=== PATIENT | female | born 1950 | race Two or more races ===

== ENCOUNTER → 2018-08-02 | Day surgery (SDC) | payer OTHER ==
[~2018-08-02] VITALS: Ht 162.6 cm; Wt 82.6 kg
[2018-08-02] VITALS (8 sets, daily range): BP systolic 100–143; BP diastolic 53–68
[~2018-08-02] MED LIST: ASPIRIN EC81 MG ORAL; Atropine Inj 1mg/10ml Syr IV PRN; DiphenhydrAMINE 50mg/ml Inj IVP PRN; LR 1000ml 1,000 ML IVLG SCH; LR 1000ml ONE; Lidocaine 1% MPF 10mg/ml 5ml ONE; Midazolam 2mg/2ml Inj IVP PRN; Propofol 200mg/20ml IV ONE; [UNRECOGNIZED DRUG - CODE] PO; fentaNYL 100 mcg/2 mL IV PRN
--- NOTE | 2018-08-02 06:47 | Anethesia Preoperative Eval ---
Anesthesia Pre-op PMH/ROS General Date of Evaluation: Aug 02, 2018 Time of Evaluation: 06:46 Anesthesiologist: chuy ASA Score: ASA 3 Mallampati Score Class I : Soft palate, uvula, fauces, pillars visible Class II: Soft palate, uvula, fauces visible Class III: Soft palate, base of uvula visible Class IV: Only hard plate visible Mallampati Classification: Class II Surgeon: toño Diagnosis: abdominal pain, gerd Surgical Procedure: egd Anesthesia History: none Family History: no anesthesia problems Allergies: Coded Allergies: No Known Allergies (Unverified , 08/01/18) Medications: see eMAR Patient NPO?: Yes Past Medical History Cardiovascular: Reports: HTN Gastrointestinal/Genitourinary: Reports: other - hepatitis Neurologic/Psychiatric: Reports: depression/anxiety HEENT: Reports: cataract (L), cataract (R) Hematology/Immune: Reports: other - mumps Musculoskeletal/Integumentary: Reports: OA PSxH Narrative: Anesthesia Pre-op Phys. Exam Physician Exam Constitutional: NAD Neurologic: CN 2-12 intact Cardiovascular: RRR Respiratory: CTA Gastrointestinal: S/NT/ND Airway Exam Mallampati Score: Class II MO: limited Neck: flexible TMD: 2fb ROM: limited Anesthesia Pre-op A/P Risk Assessment & Plan Assessment: asa3 Plan: mac Status Change Before Surgery: No Pre-Antibiotics Drug: Jennifer Coon MD Aug 02, 2018 06:47
--- NOTE | 2018-08-02 10:24 | Short Stay Surgery H&P ---
History of Present Illness History of Present Illness Chief Complaint Abdominal pains/Epigastric pains/heartburn and dysphagia SHERON Haque is a 68 year old female who was admitted on for Abdominal Pain, Gerd/dysphagia Patient History Allergies: Coded Allergies: No Known Allergies (Unverified , 08/01/18) PAST MEDICAL HISTORY: (1) Hypertension (2) Diabetes (3) Arthritis (4) Previous section Review of Systems Cardiovascular: Reports: no symptoms, hypertension Respiratory: Reports: no symptoms Skeletal: Reports: osteroarthritis, trauma Gastrointestinal: Reports: gastro esophageal reflux disease Genitourinary: Reports: no symptoms Neurologic: Reports: no symptoms Endocrine: Reports: diabetes - type 2 Hematologic: Reports: no symptoms Physical Exam Skin: normal HENT: normal Heart: normal Lungs: normal Abdomen: abnormal Extremities: normal Genitourinary: normal Plan Plan of Care Upper GI. Endoscopy and biopsy Preop Interventions None. Summary of Findings See the reports Attestation Are the patient's medical conditions optimized for surgery? Attestation Response: yes Levy Watson MD Aug 02, 2018 10:24
--- NOTE | 2018-08-02 10:25 | Pre-Procedure Note/Attestation ---
Pre-Procedure Note/Attestation Complete Prior to Procedure Planned Procedure: left Procedure Narrative: Examination of the upper GI tract via endoscopy Indications for Procedure Pre-Operative Diagnosis: R/O Peptic ulcer/esophagitis. Attestation I attest that I discussed the nature of the procedure; its benefits; risks and complications; and alternatives (and the risks and benefits of such alternatives ), prior to the procedure, with the patient (or the patient's legal chemical sales representative). I attest that, if there was a reasonable possibility of needing a blood transfusion, the patient (or the patient's legal chemical sales representative) was given the [facility] standardized written summary, pursuant to the Aditya Damar Blood Safety Act ([place] Health and Safety Code # 1645, as amended). I attest that I re-evaluated the patient just prior to the surgery and that there has been no change in the patient's H&P, except as documented below: Levy Watson MD Aug 02, 2018 10:25
--- NOTE | 2018-08-02 11:07 | Endoscopy Procedure Note ---
Endoscopy Procedure Note General Indication for Procedure: Abdominal pains/dysphagia Procedures Performed: EGD - Gastritis of the antrum with erosions c/w erosive gastritis biopsied. Specimen: yes Pt Tolerated Procedure Well: Yes Estimated Blood Loss: none Anesthesia Anesthesiologist: Dr. Wood Anesthesia: moderate sedation Medications Medication Given: see anesthesia record Inserted Devices Implant(s) used?: No Quality Quality of Bowel Preparation: Excellent GI Core Measures 50 yrs or older w/o bx or poly: Not Applicable 10yrs. F/U not recommended: Not Applicable If not recommended, why?: Med reason:<3 yrs.: System Reason:<3 yrs.: Levy Watson MD Aug 02, 2018 11:07
--- NOTE | 2018-08-02 11:08 | Discharge Instructions ---
Discharge Instructions Discharge Instructions Follow up with: Visit the doctor after two weeks in the office For Congestive Heart Failure Reminder Report to your physician any weight gain of 5 pounds or more in one week. Levy Watson MD Aug 02, 2018 11:08
--- NOTE | 2018-08-02 12:37 | Immediate Post-Op Evaluation ---
Immediate Post-Op Evalulation Immediate Post-Op Evalulation Procedure: egd w/bx Date of Evaluation: Aug 02, 2018 Time of Evaluation: 11:23 Blood Products: none Estimated Blood Loss: negligible Blood Pressure Systolic: 143 Blood Pressure Diastolic: 68 Pulse Rate: 71 Respiratory Rate: 18 O2 Sat by Pulse Oximetry: 99 Temperature (Fahrenheit): 98.3 Pain Score (1-10): 0 Nausea: No Vomiting: No Complications none Patient Status: awake, reacts, patent Hydration Status: adequate Drug: Jennifer Coon MD Aug 02, 2018 12:37
--- NOTE | 2018-08-02 12:39 | 48 Hour Post Anesthesia Eval ---
Post Anesthesia Evaluation Procedure: egd w/bx Date of Evaluation: Aug 02, 2018 Time of Evaluation: 11:25 Blood Pressure Systolic: 123 0: 59 Pulse Rate: 60 Respiratory Rate: 18 Temperature (Fahrenheit): 98.5 O2 Sat by Pulse Oximetry: 99 Airway: patent Nausea: No Vomiting: No Pain Intensity: 0 Hydration Status: adequate Cardiopulmonary Status: stable Mental Status/LOC: patient returned to baseline Post-Anesthesia Complications: none Follow-up care needed: N/A Jennifer Hernandez MD Aug 02, 2018 12:39
--- NOTE | 2018-08-02 20:15 | Pre-op HX & Phy Repo 2 SIG ---
DATE OF ADMISSION: 08/02/2018 HISTORY OF PRESENT ILLNESS: The patient is a 68-year-old non-Filipino speaking female, who is being seen prior to undergoing the procedure of upper GI endoscopy for which she has been scheduled to receive for evaluation of her gastrointestinal symptoms that she has suffered subsequent to her work injury. The applicant basically complains of having pain and discomfort over the upper part of the abdomen associated with gastroesophageal reflux. She reports that she was working at [employer] and during this process she had suffered multiple injuries, which caused her to receive multiple medications including anti-inflammatory agents such as NSAIDs, ibuprofen, etc. She also has been experiencing nausea and occasional vomiting. She also reports to me that she feels some pressure over her chest area as well, but basically it is pain over the epigastric area. She reports however due to continuation of the pain over her body, which was secondary to work accident, she still has to continue taking Motrin. She reports that approximately 2 years ago, she also had a colonoscopic examination, which was reported to be normal findings, but she never had any upper GI endoscopy for evaluation of her upper GI symptoms as described above. As I mentioned, she was injured in different parts of the body at this job that she had working at the [employer] and she had injuries over the knee, ankle, neck, shoulders, forearms, and hands. She also complains of having pain over the lower back area. She also having pain over the right hip. She also reports that she does have headaches as well. In the past, she has been seen by multiple physicians. PAST MEDICAL HISTORY: The applicant does have hypertension, diabetes, history of arthritis, and possible carpal tunnel syndrome surgery. The patient has had history of 2 C-sections in the past. ALLERGIES: None. MEDICATIONS: List of present medications are the medications for the diabetes, which is metformin and Motrin. REVIEW OF SYSTEMS: Basically history of present illness. Note, she does have complained of pain over different parts of the body related to work accident as well. She also suffers from anxiety and depression. PHYSICAL EXAMINATION: GENERAL: At this time reveals an alert and oriented, very pleasant female who looks well developed and nourished and quite obese. She is in no acute distress. VITAL SIGNS: All stable. HEENT: Normocephalic. Pupils equal in size and reactive to light and accommodation. NECK: Supple. No JVD or thyromegaly. CHEST: Clear to auscultation and percussion. No rales or rhonchi or wheezing. HEART: S1 and S2 normal. Regular rhythm. No gallops or murmur. ABDOMEN: Soft. She does have feeling of tenderness while palpating over upper and lower part of the abdomen, but mostly in the epigastric area. The abdomen is quite obese. No masses felt. EXTREMITIES: None significant. No pretibial edema, cyanosis, or clubbing. NEUROLOGICAL: None significant. PRELIMINARY PREOPERATIVE IMPRESSION: 1. Epigastric pain of uncertain etiology, rule out NSAID-induced gastropathy, rule out peptic ulcer disease, gastritis, duodenal ulcer, or gastric ulcer caused by NSAIDs. 2. Dysphagia of uncertain etiology, possible gastroesophageal reflux, esophageal spasm, or NSAID-induced esophagitis associated with nausea and periodic vomiting. 3. Hypertension, diabetes mellitus, and arthritis. RECOMMENDATION: The applicant at this time seems to be quite stable to undergo the procedure of upper GI endoscopy for which she has been scheduled. She understands the risks and benefits and will sign the consent for it. Said Amber Watson DR: BUBBA JOB#: [id number] CC:
--- NOTE | 2018-08-02 20:15 | Operative Note - Dictated ---
DATE OF OPERATION: 08/02/2018 SURGEON: Levy Watson M.D. PROCEDURE: Esophagogastroduodenoscopy with biopsy. PREOPERATIVE DIAGNOSES: Abdominal pain, nausea, vomiting, and heartburn. POSTOPERATIVE DIAGNOSIS: Gastritis of the antral area with erosions consistent with erosive gastritis biopsy. MEDICATION USED: Per Dr. Wood, anesthesiologist. INSTRUMENT: GIF Olympus upper GI video endoscope. DESCRIPTION OF PROCEDURE: The patient, after arriving to endoscopy unit, was told about risks and benefits of the procedure, which she accepted and signed informed consent. She was then put on the left lateral decubitus position after adequate IV sedation. Scope was gently passed through the cricopharyngeal area, was lodged into the upper esophagus, and gradually advanced towards gastroesophageal junction. The entire length of the esophagus looked normal. No evidence of varices, inflammatory process, ulceration, etc. was found. GE junction also looked normal. No Blandon's or hiatal hernia noted. The scope at this time was advanced into the stomach. Gastric cavity was distended with insufflation of air. The areas of the fundus and the body and the antrum were examined in fuel house attendant fashion. the area of pathology was found in the antrum and prepyloric area with edema of the gastric tissue and erythema along with superficial erosions, which was consistent with erosive gastritis of mild/moderate degree. A couple of random biopsies from this area was obtained and subsequently the scope was passed through the pylorus. First and second portion of duodenum were found to be completely normal. Finally, the scope was pulled back into the stomach. A retroflexion maneuver was applied and the area of the gastroesophageal junction was examined in a closer fashion, which revealed normal findings. At this time, the scope was pulled out and the procedure was terminated. The patient tolerated the procedure well and left the endoscopy room in a good condition. Levy Watson M.D. DR: PRABHU JOB#: [id number] CC:
== END | disposition home or self-care (01) ==
LOC: GAS 10:03
DX: K29.50 Unspecified chronic gastritis without bleeding (principal); I10 Essential (primary) hypertension; E11.9 Type 2 diabetes mellitus without complications; M19.90 Unspecified osteoarthritis, unspecified site; F41.9 Anxiety disorder, unspecified; F32.9 Major depressive disorder, single episode, unspecified; Z86.19 Personal history of other infectious and parasitic diseases
CPT/HCPCS: 43239; 82962; J2704; 94003; 94150